=== PATIENT | female | born 2000 | race African-American/Black ===

== ENCOUNTER 2023-01-18 18:00 | Inpatient (IN) | payer OTHER ==
[2023-01-18] MEDS ORDERED: Carboprost 250 MCG/ML AMP IM PRN (19:24)
[2023-01-18] MEDS ORDERED: Ondansetron PF 4 MG/2 ML Vial IVP PRN (19:24)
[2023-01-18] MEDS ORDERED: hydrALAZINE 20 MG/ML VIAL SLOW IVP PRN (19:24)
[2023-01-18] MEDS ORDERED: Lidocaine 1% (PF) 30 ML VIAL SC PRN (19:24)
[2023-01-18] MEDS ORDERED: Misoprostol 200 MCG TAB PR PRN (19:24)
[2023-01-18] MEDS ORDERED: Tranexamic Acid 1,000 MG/10 ML VIAL IVP PRN (19:24)
[2023-01-18] MEDS ORDERED: Acetaminophen 500 MG TAB PO PRN (19:24)
[2023-01-18] MEDS ORDERED: fentaNYL 50 mcg/mL 1 mL Vial SLOW IVP PRN (19:24)
[2023-01-18] MEDS ORDERED: HYDROcodone/Acetaminophen 5/325 mg Tablet PO PRN (19:24)
[2023-01-18] MEDS ORDERED: Methylergonovine 0.2 MG/ML VIAL IM PRN (19:24)
[2023-01-18] MEDS ORDERED: Diphenoxylate HCl/Atropine Tablet PO PRN (19:24)
[2023-01-18] MEDS ORDERED: Promethazine HCl 25 MG/ML VIAL IM PRN (19:24)
[2023-01-18] MEDS ORDERED: Ibuprofen 800 MG TAB PO PRN (19:24)
[2023-01-18] MEDS ORDERED: Oxytocin 30 units/NS 500 ML 500 ML IV SCH ×3 (19:30)
[2023-01-18] MEDS ORDERED: Penicillin G Potassium 5 MILL.UNITS in Sodium Chloride 0.9% 100 ML IVPB SCH (19:30)
[2023-01-18] MEDS: Misoprostol 100 MCG TAB VAG SCH (20:27)
[2023-01-18 20:44] LABS: Hematocrit 28.9 % (34.9-44.5); Hemoglobin 9.1 g/dL (12.0-15.5); Mean Corpuscular HGB CONC 31.5 g/dL (32.0-36.0); Mean Corpuscular Hemoglobin 22.3 pg (27.0-33.0); Mean Corpuscular Volume 70.8 fl (81.6-98.3); Mean Platelet Volume 12.6 fl (7.4-10.4); Platelet Count 339 10x3/uL (150-450); RBC Distribution Width 15.6 % (11.5-14.5); Red Blood Cell (RBC) Count 4.08 10x6/uL (3.90-5.03); White Blood Cell (WBC) Count 9.9 10x3/uL (3.5-10.5)
[2023-01-18 21:08] LABS: HBSAg Index 0.09 S/CO (0-0.99); Hep B Surf Ag - L&D Non-Reactive S/CO (NonReactive)
[2023-01-18 21:11] LABS: Syphilis Antibody Index 21.59 S/CO (<1.00 Non-Reactive)
[2023-01-18 21:45] LABS: Syphilis Antibody REACTIVE (Nonreactive)
[2023-01-18 23:13] VITALS: BMI 43.7
[2023-01-19] MEDS: Misoprostol 100 MCG TAB VAG SCH ×4 (01:33→19:54)
[2023-01-19 04:00] LABS: Glucose 79 mg/dL (70-105)
[2023-01-19] MEDS: Lactated Ringer's 1,000 ML IV SCH (19:53)
[2023-01-19] MEDS: Penicillin G 2.5 MILL.units 2.5 MILL.UNITS in Premix 1 BAG IVPB SCH (19:53)
[2023-01-19] MEDS: Misoprostol 100 MCG TAB PO SCH (20:49)
[2023-01-20] MEDS: Penicillin G 2.5 MILL.units 2.5 MILL.UNITS in Premix 1 BAG IVPB SCH ×2 (00:32→06:02)
[2023-01-20] MEDS: Misoprostol 100 MCG TAB VAG SCH ×2 (00:32→06:02)
[2023-01-20] MEDS: Misoprostol 100 MCG TAB PO SCH ×3 (00:53→08:56)
[2023-01-20] MEDS: Lactated Ringer's 1,000 ML IV SCH (06:02)
[2023-01-20] MEDS ORDERED: fentaNYL/Ropivacaine Epidural 100 ML ONE (17:39)
[2023-01-20] MEDS ORDERED: Lactated Ringer's 500 ML IV PRN (19:06)
[2023-01-20] MEDS ORDERED: ePHEDrine Sulfate 50 MG/10 ML VIAL SLOW IVP PRN (19:06)
[2023-01-20] MEDS ORDERED: Moisturizing Cream (Eucerin) 113 GM JAR TOP PRN (19:06)
[2023-01-20] MEDS ORDERED: Naloxone HCl 0.4 mg/ml Vial IVP PRN ×2 (19:06)
[2023-01-20] MEDS ORDERED: Acetaminophen 325 MG TAB PO PRN (19:06)
[2023-01-20] MEDS ORDERED: Ondansetron PF 4 MG/2 ML Vial IVP PRN (19:06)
[2023-01-20] MEDS ORDERED: diphenhydrAMINE 50 MG/ML VIAL IVP PRN (19:06)
[2023-01-20] MEDS ORDERED: Promethazine HCl 25 MG/ML VIAL IM PRN (19:06)
[2023-01-20] MEDS ORDERED: Communication Order-Pharmacy FS SCH (19:15)
[2023-01-20] MEDS ORDERED: fentaNYL 2 mcg/Ropivacaine 0.2% Epidural 100 ML CADD EPIDURAL SCH (19:15)
[2023-01-21] MEDS ORDERED: Azithromycin 500 MG VIAL ONE (04:33)
[2023-01-21] MEDS ORDERED: CEFAZOLIN 2 GM VIAL ONE (04:33)
[2023-01-21] MEDS ORDERED: fentaNYL 50 mcg/mL 1 mL Vial ONE (04:39)
[2023-01-21] MEDS ORDERED: Oxytocin 10 UNITS/ML VIAL ONE (04:39)
[2023-01-21] MEDS ORDERED: Morphine PF 10 MG/10 ML VIAL ONE (04:39)
[2023-01-21] MEDS ORDERED: Ondansetron PF 4 MG/2 ML Vial ONE (05:05)
[2023-01-21] MEDS ORDERED: PHENYLEPHRINE-NS 100 MCG/ML 10 ML SYRINGE ONE (05:25)
[2023-01-21] MEDS ORDERED: Ketorolac Tromethamine 30 MG/ML VIAL ONE (05:59)
[2023-01-21] MEDS ORDERED: Communication Order-Pharmacy FS SCH (06:00)
[2023-01-21] MEDS ORDERED: Ondansetron HCl/PF 4 MG/2 ML Vial IVP PRN (06:00)
[2023-01-21] MEDS ORDERED: Moisturizing Cream (Eucerin) 113 GM JAR TOP PRN (06:00)
[2023-01-21] MEDS ORDERED: diphenhydrAMINE 50 MG/ML VIAL IVP PRN (06:00)
[2023-01-21] MEDS ORDERED: PACU-Morphine 4MG/ML VIAL SLOW IVP PRN (06:00)
[2023-01-21] MEDS ORDERED: Naloxone HCl 0.4 mg/ml Vial IVP PRN ×2 (06:00)
[2023-01-21] MEDS ORDERED: Ondansetron PF 4 MG/2 ML Vial IVP PRN ×2 (06:00→08:54)
[2023-01-21] MEDS ORDERED: Promethazine HCl 25 MG/ML VIAL IM PRN ×3 (06:00→08:54)
[2023-01-21] MEDS ORDERED: Naloxone HCl 0.4 mg/ml Vial IV PRN (06:00)
[2023-01-21] MEDS ORDERED: Ketorolac Tromethamine 30 MG/ML VIAL IVP PRN (06:00)
[2023-01-21] MEDS ORDERED: Promethazine HCl 25 MG SUPP PR PRN (06:00)
[2023-01-21] MEDS ORDERED: HYDROcodone/Acetaminophen 5/325 mg Tablet PO PRN (08:54)
[2023-01-21] MEDS ORDERED: Lanolin Ointment 7 GM TUBE TOP PRN (08:54)
[2023-01-21] MEDS ORDERED: hydrALAZINE 20 MG/ML VIAL SLOW IVP PRN (08:54)
[2023-01-21] MEDS ORDERED: Boostrix 0.5 ML (Tdap) VIAL (>/=7 yrs of age) IM ONE (08:54)
[2023-01-21] MEDS ORDERED: diphenhydrAMINE 25 MG CAP PO PRN (08:54)
[2023-01-21] MEDS ORDERED: Bisacodyl 10 MG SUPP PR PRN (08:54)
[2023-01-21] MEDS: Ketorolac Tromethamine 30 MG/ML VIAL IVP SCH ×3 (12:02→23:51)
[2023-01-21] MEDS ORDERED: Lidocaine 2% MPF 10 ML AMP (For Epidural Use) ONE (15:00)
[2023-01-21] MEDS ORDERED: ePHEDrine Sulfate 50 MG/10 ML VIAL ONE (15:00)
[2023-01-21] MEDS ORDERED: Bupivacaine 0.25% HCL 30 ML VIAL ONE (15:00)
[2023-01-21] MEDS ORDERED: Bupivacaine PF 0.5% 30 ML VIAL ONE (15:00)
[2023-01-21] MEDS: Lactated Ringer's 1,000 ML IV SCH (17:36)
[2023-01-21] MEDS: Docusate 100 MG CAP PO SCH ×2 (21:34→22:21)
[2023-01-21] MEDS: Ferrous Sulfate 325 MG TAB PO SCH (22:21)
[2023-01-21] MEDS: Prenatal Vitamin 1 TAB PO SCH (22:21)
[2023-01-22 04:27] LABS: Hematocrit 23.5 % (34.9-44.5); Hemoglobin 7.3 g/dL (12.0-15.5); Mean Corpuscular HGB CONC 31.1 g/dL (32.0-36.0); Mean Corpuscular Hemoglobin 21.7 pg (27.0-33.0); Mean Corpuscular Volume 69.9 fl (81.6-98.3); Mean Platelet Volume 11.8 fl (7.4-10.4); Platelet Count 275 10x3/uL (150-450); RBC Distribution Width 15.6 % (11.5-14.5); Red Blood Cell (RBC) Count 3.36 10x6/uL (3.90-5.03); White Blood Cell (WBC) Count 16.3 10x3/uL (3.5-10.5)
[2023-01-22] MEDS: Ferrous Sulfate 325 MG TAB PO SCH ×3 (05:28→21:38)
[2023-01-22] MEDS: Ibuprofen 800 MG TAB PO SCH ×3 (05:41→21:38)
[2023-01-22] MEDS: Prenatal Vitamin 1 TAB PO SCH (08:01)
[2023-01-22] MEDS: Docusate 100 MG CAP PO SCH ×2 (08:01→21:38)
[2023-01-22] MEDS: HYDROcodone/Acetaminophen 5/325 mg Tablet PO PRN ×4 (08:01→19:58)
[2023-01-22] MEDS: Simethicone Chewable 80 MG TAB PO PRN ×3 (11:49→19:59)
[2023-01-23] MEDS: HYDROcodone/Acetaminophen 5/325 mg Tablet PO PRN ×5 (00:46→18:43)
[2023-01-23] MEDS: Simethicone Chewable 80 MG TAB PO PRN ×5 (00:46→18:43)
[2023-01-23] MEDS: Ibuprofen 800 MG TAB PO SCH ×3 (05:17→21:34)
[2023-01-23] MEDS: Ferrous Sulfate 325 MG TAB PO SCH ×2 (10:18→21:34)
[2023-01-23] MEDS: Docusate 100 MG CAP PO SCH ×2 (10:18→21:34)
[2023-01-23] MEDS: Prenatal Vitamin 1 TAB PO SCH (10:18)
[2023-01-24] MEDS: Simethicone Chewable 80 MG TAB PO PRN ×2 (00:31→09:17)
[2023-01-24] MEDS: HYDROcodone/Acetaminophen 5/325 mg Tablet PO PRN ×3 (00:31→13:23)
[2023-01-24] MEDS: Ibuprofen 800 MG TAB PO SCH ×2 (06:23→13:23)
[2023-01-24] MEDS: Prenatal Vitamin 1 TAB PO SCH (09:18)
[2023-01-24] MEDS: Docusate 100 MG CAP PO SCH (09:18)
[2023-01-24] MEDS: Ferrous Sulfate 325 MG TAB PO SCH (09:18)
[2023-01-24 09:46] VITALS: BP 115/69; TEMP 98.6
== END 2023-01-24 14:50 | disposition home or self-care (01) | DRG 787 ==
LOC: CSHLD 18:13 → CSHPP 01-21 09:09
PROVIDERS: ADMIT Family Medicine; ATTEND Family Medicine
PROC: 3E0P7VZ Introduction of Hormone into Female Reproductive, Via Natural or Artificial Opening (ICD-10-PCS; 2023-01-19)
PROC: 10907ZC Drainage of Amniotic Fluid, Therapeutic from Products of Conception, Via Natural or Artificial Opening (ICD-10-PCS; 2023-01-20)
PROC: 10H07YZ Insertion of Other Device into Products of Conception, Via Natural or Artificial Opening (ICD-10-PCS; 2023-01-20)
PROC: 10D00Z1 Extraction of Products of Conception, Low, Open Approach (ICD-10-PCS; principal; 2023-01-21)
DX: O24.420 Gestational diabetes mellitus in childbirth, diet controlled (principal); O98.12 Syphilis complicating childbirth; Z3A.40 40 weeks gestation of pregnancy; Z37.0 Single live birth; O76 Abnormality in fetal heart rate and rhythm complicating labor and delivery; A53.0 Latent syphilis, unspecified as early or late; O99.214 Obesity complicating childbirth; O48.0 Post-term pregnancy
CPT/HCPCS: 36415; 36416; 51702; 82947; 85027; 86593; 86780; 86850; 86900; 86901; 87340; J1885; J2274; J2405; J2590; J3010; J7120; S0020